=== PATIENT | male | born 1980 | race Caucasian/White ===

== ENCOUNTER 2023-02-09 20:54 | Emergency (ER) | payer SELFPAY ==
[2023-02-09 21:32] VITALS: BP 123/76; PULSE 122; RESP 16; TEMP 37; O2SAT 99; BMI 32.3
--- NOTE | 2023-02-10 04:15 | ED_ITS ---
HPI - General Adult General Chief complaint: Toxicology Problem Stated complaint: excessive alcohol consumption, would like MSE Time Seen by Provider: 02/10/23 04:15 Source: patient Mode of arrival: Family Vehicle History of Present Illness HPI narrative: 42-year-old gentleman with alcohol use disorder who stopped drinking 36 days ago did not appropriate job of getting all alcohol out of the house and this evening after a very bad day decided he would drink a cup of rubbing alcohol just to see how it felt. The exposure was around noon-330pm on 02/09. He was not suicidal. He is brought in by his for further evaluation and had a near syncopal episode in the lobby. He has been cooperative and appropriate since. He complains of no chest pain, palpitations, shortness of breath, abdominal pain. He had a single episode of nonbloody emesis. He states that he does not have difficulties with withdrawals and has never had seizures when he has stopped drinking. Review of Systems Review of Systems Narrative: Pertinent positive and negative findings as per HPI Patient History Social History Smoking Status: Never smoker Smoking Status: Never smoker Substance Use Type: does not use Exam Initial Vital Signs Initial Vital Signs: Vital Signs Temperature 98.6 F 02/09/23 21:32 Pulse Rate 122 H 02/09/23 21:32 Respiratory Rate 16 02/09/23 21:32 Blood Pressure 123/76 02/09/23 21:32 Pulse Oximetry 99 02/09/23 21:32 Oxygen Delivery Method Room Air 02/09/23 21:32 General: Healthy appearing, in no acute distress. Able to give a complete and coherent history. Well-nourished well-developed HEENT: Moist mucous membranes, mildly injected sclera with reactive pupils, Neck: No JVD, supple Respiratory: Lungs are clear to auscultation, no wheezing no rales no rhonchi. Full and symmetrical air movement Cardiac: Regular rate and rhythm no murmurs no bruits Abdomen: Soft, nontender, good bowel tones, no flank pain Skin: Warm and dry, no rashes Neurologic: Grossly neurologically intact with no obvious asymmetries or abnormalities Extremities: No trauma, well perfused Psych: Cooperative, appropriate insight and affect Course Orders Ordered: ED Orders 02/10/23 04:54 ABG [Arterial Blood Gas] Stat 02/10/23 04:55 EKG-12 Lead Stat 02/10/23 05:19 Complete Blood Count AUTO DIFF Stat Comprehensive Metabolic Panel Stat Ethanol (ETOH) Stat Lipase Stat Magnesium Stat Discontinued Medications Sodium Chloride (Normal Saline 0.9%) 1,000 mls @ 1,000 mls/hr IV BOLUS ONE Stop: 02/10/23 05:53 Last Infusion: 02/10/23 07:42 Dose: 0 mls/hr Documented By: Admin: 02/10/23 05:27 Dose: 1,000 mls/hr Documented By: AP Thiamine HCl 100 mg/ Sodium (Chloride) 101 mls @ 404 mls/hr IV NOW ONE Stop: 02/10/23 04:55 Last Infusion: 02/10/23 05:56 Dose: 0 mls/hr Documented By: Admin: 02/10/23 05:26 Dose: 404 mls/hr Documented By: OMAR Vital Signs Vital signs: Vital Signs - 8 hr 02/10/23 05:03 02/10/23 07:37 Temperature 97.8 F Pulse Rate 99 H 90 Respiratory Rate 18 18 Blood Pressure 132/71 147/73 H Pulse Oximetry 94 99 Oxygen Delivery Method Room Air Room Air Medical Decision Making Lab Data 02/10/23 05:19 02/10/23 05:19 Labs: Lab Results 02/10/23 02/10/23 02/10/23 Range/Units 04:54 05:19 05:19 WBC 7.2 (4.5-11.0) X10^3/uL RBC 4.74 (4.5-5.9) X10^6/uL Hgb 15.4 (13.5-17.5) g/dL Hct 43.8 (41-53) % MCV 92.3 (80-100) fL MCH 32.4 (26-34) PG MCHC 35.1 (30-36) % RDW 13.4 (11.6-14.8) % Plt Count 121 L (150-400) X10^3/uL Neut % (Auto) 61.1 (50-75) % Lymph % (Auto) 28.6 (25-40) % [place] % (Auto) 9.6 (3-14) % Eos % (Auto) 0.3 L (2-4) % Baso % (Auto) 0.4 (0-2) % Neut # (Auto) 4400 (0824-4564) /uL Lymph # (Auto) 2100 (8634-8227) /uL [place] # (Auto) 700 (0-900) /uL Eos # (Auto) 0 (0-450) /uL Baso # (Auto) 0 (0-100) /uL ABG pH 7.45 (7.35-7.45) ABG pCO2 38.4 (35-45) mmHg ABG pO2 82 (80-100) mmHg ABG HCO3 27 (23-27) mmol/L ABG Total CO2 28 H (23-27) mmol/L ABG O2 Saturation 97 (95-100) % ABG Base Excess 2.0 (-2-3) mmol/L FiO2 21 Sodium 142 (137-145) mmol/L Potassium 4.0 (3.4-5.1) mmol/L Chloride 101 (98-107) mmol/L Carbon Dioxide 26 (22-32) mmol/L BUN 10 (9-20) mg/dL Creatinine 0.70 (0.66-1.25) mg/dL Estimated GFR > 60 (>60) mL/min BUN/Creatinine Ratio 14.3 (6-22) Glucose 116 H (70-100) mg/dL Calcium 8.0 L (8.4-10.2) mg/dL Magnesium 2.3 (1.6-2.3) mg/dL Total Bilirubin 0.2 (0.2-1.3) mg/dL AST 27 (17-59) IU/L ALT 48 (<50) IU/L Alkaline Phosphatase 62 (38-126) U/L Total Protein 7.2 (6.3-8.2) g/dL Albumin 4.6 (3.5-5.0) g/dL Globulin 2.6 (1.7-4.1) g/dL Albumin/Globulin Ratio 1.8 (1.0-2.8) Lipase 72 (23-300) U/L Ethyl Alcohol < 10 ( - 10) mg/dL MDM Narrative Medical decision making narrative: CC: drank 1 cup rubbing alcohol between noon and 330 in the afternoon yesterday. this is an acute issue, Uncertain prognosis Complicating co-morbidities: Alcohol use disorder, no drinks for 36 days. Not in any formal treatment but has ?friends? to whom he can reach out who ?understand. 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 Lab Test results independently reviewed as above. Pertinent findings: CBC is unremarkable Chemistries are reassuring ABG has a pH of 7.48 CO2 of 38 O2 of 82 on room air and bicarb of 26.6 Independently reviewed EKG sinus rhythm at a rate of 87, normal intervals, normal axis no acute ischemic changes Consultations: 5am Discuss with poison control. This is typically not one of the more toxic alcohols and recommendations are observation until clinically sober. Treatments: fluids Discussion: Patient is re-evaluated. He is feeling significantly better. He is clinically sober. His is present and assists in history taking. At this point we talked about the importance of getting into treatment program to truly begin to deal with his alcohol addiction issues. Seemed somewhat open to the idea. Will give him a referral to [facility] [place]. Also talked to his about Al-Anon type groups. Patient is safe for discharge home Discharge Plan Departure Patient Disposition: Home Clinical Impression: Alcohol use disorder Toxic effect of rubbing alcohol Qualifiers: Encounter type: initial encounter Injury intent: undetermined intent Qualified Code(s): T51.2X4A - Toxic effect of 2-Propanol, undetermined, initial encounter Instructions: DI for Alcohol Use Disorder Activity Restrictions/Additional Instructions: Thank you for coming in last night Your blood work is reassuring. There does not appear to be in a lasting damage from the rubbing alcohol. Kidney function liver function are all appropriate. You are waking Up and sobering nicely. I would encourage you to follow-up with [facility] and consider outpatient alcohol use disorder treatment. They have a facility in [place]. The phone number is [phone] If you find that you are getting worse or develop any new symptoms, please feel free to return to the emergency department for further evaluation. Stand Alone Forms: Patient Portal/API
[2023-02-10 05:03] VITALS: BP 132/71; PULSE 99; RESP 18; O2SAT 94
[2023-02-10] MEDS: THIAMINE 100 MG in SODIUM CHLORIDE 0.9% 100 ML 404 MG IV (05:26)
[2023-02-10] MEDS: SODIUM CHLORIDE 0.9% 1,000 ML 1000 ML IV (05:27)
[2023-02-10 05:35] LABS: pH ABG 7.45 (7.35-7.45)
[2023-02-10 05:36] LABS: Fractionated Inspired Oxygen 21; HCO3 ABG 27 mmol/L (23-27); Oxygen Saturation ABG 97 % (95-100); PCO2 ABG 38.4 mmHg (35-45); PO2 ABG 82 mmHg (80-100); TCO2 ABG 28 mmol/L (23-27)
[2023-02-10 05:38] LABS: Add Manual Diff / Slide Review NO; Basophils Absolute Auto 0 /uL (0-100); Basophils Percent Auto 0.4 % (0-2); Eosinophils Absolute Auto 0 /uL (0-450); Eosinophils Percent Auto 0.3 % (2-4); Hematocrit 43.8 % (41-53); Hemoglobin 15.4 g/dL (13.5-17.5); Lymphocytes Absolute Auto 2100 /uL (1100-4500); Lymphocytes Percent Auto 28.6 % (25-40); Mean Corpuscular HGB Conc 35.1 % (30-36); Mean Corpuscular Hemoglobin 32.4 PG (26-34); Mean Corpuscular Volume 92.3 fL (80-100); Monocytes Absolute Auto 700 /uL (0-900); Monocytes Percent Auto 9.6 % (3-14); Neutrophils Absolute Auto 4400 /uL (1500-7000); Neutrophils Percent Auto 61.1 % (50-75); Platelet Count 121 X10^3/uL (150-400); Red Blood Cell Count 4.74 X10^6/uL (4.5-5.9); Red Cell Distribution Width 13.4 % (11.6-14.8); White Blood Cell Count 7.2 X10^3/uL (4.5-11.0)
[2023-02-10 05:45] LABS: Alanine Aminotransferase 48 IU/L (<50); Albumin 4.6 g/dL (3.5-5.0); Albumin Globulin Ratio 1.8 (1.0-2.8); Alkaline Phosphatase 62 U/L (38-126); Aspartate Aminotransferase 27 IU/L (17-59); BUN Creatinine Ratio 14.3 (6-22); Bilirubin Total 0.2 mg/dL (0.2-1.3); Blood Urea Nitrogen 10 mg/dL (9-20); Carbon Dioxide 26 mmol/L (22-32); Chloride 101 mmol/L (98-107); Estimated Glomerular Filt Rate > 60 mL/min (>60); Globulin 2.6 g/dL (1.7-4.1); Glucose 116 mg/dL (70-100); HEMOLYSIS < 15 (0-50); Lipase 72 U/L (23-300); Magnesium 2.3 mg/dL (1.6-2.3); Sodium 142 mmol/L (137-145); Total Protein 7.2 g/dL (6.3-8.2)
[2023-02-10 05:56] LABS: Ethanol (ETOH) < 10 mg/dL
[2023-02-10 07:37] VITALS: BP 147/73; PULSE 90; RESP 18; TEMP 36.6; O2SAT 99
[2023-02-10 08:00] VITALS: BP 126/55; PULSE 88; RESP 18; O2SAT 98
== END 2023-02-10 08:18 | disposition home or self-care (01) ==
PROVIDERS: Emergency Provider Emergency Medicine
DX: T51.2X4A Toxic effect of 2-Propanol, undetermined, initial encounter (principal); F10.90 Alcohol use, unspecified, uncomplicated; R07.9 Chest pain, unspecified
CPT/HCPCS: 36600; 80053; 80320; 82805; 83690; 83735; 85025; 93005; 96360; 96361; 99283; 99284